=== PATIENT | female | born 1980 | race Caucasian/White ===

== ENCOUNTER 2017-04-09 08:03 | Inpatient (IN) | payer OTHER ==
[2017-04-09] MEDS ORDERED: Dinoprostone* 10 MG VAG.SUPP VAGINAL ONE ×2 (09:00→21:18)
[2017-04-09] MEDS ORDERED: Promethazine INJ(RESTRICTED)* 25 MG/ML 1 ML VIAL IM ONE (21:56)
[2017-04-09] MEDS ORDERED: Nalbuphine* 20 MG/ML 1 ML VIAL IV ONE (21:56)
[2017-04-10] MEDS ORDERED: Oxytocin in LR* 20 UNITS/1,000 ML BAG IVPB SCH (09:00)
[2017-04-10 09:46] LABS: Hematocrit 31 % (35-47); Hemoglobin 10.3 g/dl (12.0-16.0); Mean Corpuscular HGB Conc 34 g/dl (31-36); Mean Corpuscular Hemoglobin 29 pg (27-31); Mean Corpuscular Volume 87 fL (80-97); Mean Platelet Volume 9 um3 (7.4-10.4); Red Blood Count 3.53 10^6/ul (4.0-5.4); Red Cell Distribution Width 14 % (10.5-15); White Blood Count 13.4 10^3/ul (3.5-10.8)
[2017-04-10] MEDS ORDERED: Phenylephrine INJ* 10 MG/ML 1 ML VIAL (10 MG) ONE (11:06)
[2017-04-10] MEDS ORDERED: Nalbuphine* 20 MG/ML 1 ML VIAL IV ONE (16:09)
[2017-04-10] MEDS ORDERED: Promethazine INJ(RESTRICTED)* 25 MG/ML 1 ML VIAL IV ONE (16:10)
[2017-04-10] MEDS ORDERED: OBEPIDURAL* 250 ML ONE (22:56)
[2017-04-10] MEDS ORDERED: Famotidine TAB* 20 MG PO PRN (23:25)
[2017-04-10] MEDS ORDERED: Lactated Ringers 500 ml BAG* 500 ML IV PRN (23:25)
[2017-04-10] MEDS ORDERED: Phenylephrine IV* 40 MCG/ML 10 ML SYRINGE IV PUSH PRN ×2 (23:25)
[2017-04-10] MEDS ORDERED: OBEPIDURAL* 250 ML EPIDURAL SCH (23:45)
[2017-04-11] MEDS ORDERED: oxyCODONE/Acetamin 5/325 MG* TAB PO PRN (08:41)
[2017-04-11] MEDS ORDERED: Acetaminophen TAB* 325 MG PO PRN (08:41)
[2017-04-11] MEDS ORDERED: Witch Hazel PAD* JAR TOPICAL PRN (08:41)
[2017-04-11] MEDS ORDERED: Dibucaine 1% 28.35 GM TUBE PR PRN (08:41)
[2017-04-11] MEDS ORDERED: Glycerin ADULT SUPP PR PRN (08:41)
[2017-04-11] MEDS: Ibuprofen TAB* 600 MG PO PRN ×2 (13:03→20:11)
[2017-04-11] MEDS: Docusate CAP* 100 MG PO SCH ×3 (13:03→20:11)
[2017-04-11] MEDS: Simethicone TAB* 80 MG TAB.CHEW PO SCH (20:31)
[2017-04-12] MEDS: Ibuprofen TAB* 600 MG PO PRN ×4 (02:17→20:36)
[2017-04-12 08:18] LABS: Hematocrit 27 % (35-47); Hemoglobin 8.8 g/dl (12.0-16.0); Mean Corpuscular HGB Conc 33 g/dl (31-36); Mean Corpuscular Hemoglobin 29 pg (27-31); Mean Corpuscular Volume 88 fL (80-97); Mean Platelet Volume 9 um3 (7.4-10.4); Red Blood Count 3.04 10^6/ul (4.0-5.4); Red Cell Distribution Width 14 % (10.5-15)
[2017-04-12] MEDS: Docusate CAP* 100 MG PO SCH ×3 (08:43→20:36)
[2017-04-12] MEDS: Ferrous Gluconate TAB* 324 MG TAB PO SCH ×2 (08:44→20:36)
[2017-04-13] MEDS: Ibuprofen TAB* 600 MG PO PRN (03:36)
[2017-04-13] MEDS: Ferrous Gluconate TAB* 324 MG TAB PO SCH (09:00)
[2017-04-13] MEDS: Docusate CAP* 100 MG PO SCH (09:03)
[2017-04-13 09:21] VITALS: BP 145/71
== END 2017-04-13 10:25 | disposition home or self-care (01) | DRG 560 ==
LOC: MCHOBOUT 08:03 → MCHOB 08:52
PROVIDERS: ADMIT Midwife; ATTEND Midwife
PROC: 3E0P7GC Introduction of Other Therapeutic Substance into Female Reproductive, Via Natural or Artificial Opening (ICD-10-PCS; principal; 2017-04-11)
PROC: 10E0XZZ Delivery of Products of Conception, External Approach (ICD-10-PCS; 2017-04-11)
PROC: 4A1HXCZ Monitoring of Products of Conception, Cardiac Rate, External Approach (ICD-10-PCS; 2017-04-11)
DX: O13.4 Gestational [pregnancy-induced] hypertension without significant proteinuria, complicating childbirth (principal); E66.9 Obesity, unspecified; O87.2 Hemorrhoids in the puerperium; Z3A.39 39 weeks gestation of pregnancy; Z37.0 Single live birth; O71.89 Other specified obstetric trauma; O90.81 Anemia of the puerperium; O99.214 Obesity complicating childbirth; Z68.39 Body mass index [BMI] 39.0-39.9, adult
CPT/HCPCS: 36415; 59200; 81002; 85025; 86850; 86900; 86901; A9270-GY; J2300; J2550

== ENCOUNTER 2019-01-30 18:03 | Emergency (ER) | payer OTHER ==
--- OUTSIDE RECORDS SUMMARY | 2019-01-30 18:08 | XMS REPORT | Continuity of Care Document ---
:1980 Author Organization [facility] Address [address] [place], [place] [id number] Phone Care Team Providers Name Role Phone Bette Good NP Unavailable Unavailable [facility], NURSE OR MA Unavailable Unavailable Allergies, Adverse Reactions, Alerts Substance Reaction Status No Known Allergies Active Medications Medication Instructions Dosage Effective Dates Status Comments (start - stop) Depo-Provera 150 mg/mL IM Q 11-13 weeks - Active intramuscular suspension Problems Condition Effective Dates (start - Clinical Status Comments stop) Encounter for surveillance of injectable contraceptive Enctr srvlnc implantable subdermal contraceptive Encounter for initial prescription of injectable contracep Encounter for test, result negative Enctr for init prescription of implntbl subdermal contracep Encounter for oth general cnsl and advice on contraception Encntr screen for infections w sexl mode of transmiss Encounter for test, result positive Weeks of gestation of not specified Encounter for test, result positive Weeks of gestation of not specified Procedures Procedure Date INJECTION DEPO/CEFTRIAXONE INJECTION OR LAB ONLY VISIT EST OTHER Medical Services Contraceptive DEPO Results Test Name Date and Time Measure Units Reference Range Abnormal Flag Status Comments No information Advance Directives Directive Yes / No Effective Date File Name No information Encounters Encounter Practice Location Reason(s) Diagnoses Date Provider Providers Description For Visit Copied on Encounter [facility] Encounter for [facility] [place] surveillance of 0-201 Bette. 620 Provider: Laura injectable [address], Bette Finger contraceptive [place], [place], Florentino J [facility], [id number], [place]. [address] tel:[phone] [address], [place], [place], [address] [place], [place], [address]. [id number], tel:[phone] [place] [phone] tel:[phone] [facility] [phone] Provider: NURSE [place] [facility]. [facility] Enctr srvlnc Mar-0 Raphaelidis [facility] [place] implantable 6-201 Sarai. 620 W Provider: Southern subdermal [address], Sarai Finger contraceptiveEnc [place], [place] [address] [place] [address]. s, [address] initial tel:[phone], [place], [place], [place] [address] [place], [place], [place], [address]. [id number], contracep tel:[phone] [place] [phone] tel:[phone] [facility] Encounter for Sep-0 Guggino [facility]erring [facility] [place] test, Asha. Provider: [facility] result [address] Asha Finger negativeEnctr [facility], Laisha F, [facility], [address] [place], [address], [address] prescription of [place], [place], [place], implntbl tel:[phone] [place], [place] [address] [place], [address]. [id number], contracep tel:[phone] [place] [phone] tel:[phone] [facility] Encounter for Aug- Raphaelidis Referring [facility] [place] ot general cnsl 8-201 Sarai. 620 W Provider: [facility] and advice on [address], Sarai Finger contraception [place], Raphaelidi [facility], [address]. s, [address] tel:[phone], [place], [place], [address] [place], [place], [address]. [id number], tel:[phone] [place] [phone] tel:[phone] [facility] Encntr screen Oct- Raphaelidis [facility] [place] for infections w 4-201 Sarai. [address] Southern sexl mode of [address], Finger transmissEncount [place], [place], [place], [address] [place] [address]. [address] test, result tel:[phone] St, [place], [place] [address] [place], gestation of [id number], not [place] specified tel:[phone] [facility] Encounter for Renee Spicer. [facility] [place] test, [address] [place] result [address], [place], [place], [address], [place], [address] gestation of [place]. [address], [place], specified [place], [id number], [place] tel:[phone] Family History Family Member Diagnosis Age At Onset Mother Cancer, breast 49 1st degree relative No hx of coronary heart disease (female <65, male <55) 1st degree relative No hx of venous thromboembolism Immunizations Vaccine Date Status Comments No information Payers Payer name Insurance type Covered libertarian ID Authorization(s) Yasmani TAN [facility] CI [id number] Social History Type Description Quantity Date Captured Comments Alcohol Use Details Unknown Caffeine Use Details Unknown Tobacco Use Status Unknown Smoking Status Former smoker Sex Female Vital Signs Date / Height Weight BMI Pulse Blood Temperature Respiratory Body Head BMI Pulse Inhaled Time: Rate Pressure Rate Surface Circumference percentile Ox Ox Area No information Chief Complaint And Reason For Visit No information Reason For Referral Reason For Referral No information Plan Of Treatment Date Type Action Status No information History Of Present Illness Encounter Date Complaint History Of Present Illness No information Functional Status Date Functional Assessment No information Medications Administered Medication Instructions Dosage Effective Dates (start - stop) Status Comments No information Instructions Date Instruction Additional Information No information Assessments Type Assessment Date assessment Encounter for surveillance of injectable contraceptive Goals Health Concern Goal Type Priority Status Date No information Medical Equipment Description Device [place] Device Identifier Effective Dates (start - stop ) Status No information Mental Status Date Cognitive Assessment No information Health Concerns Observation Date No information Concern Status Date No information
[2019-01-30 18:22] VITALS: BP 136/93
--- NOTE | 2019-01-30 18:54 | UC ---
Ear Complaint HPI - HPI Summary HPI Summary: No specific history of bite, but has had increasing redness and swelling of the right ear pinna over the past 12 hours. Using ibuprofen for pain and using compresses for comfort. No hearing loss, no fever. occasional of her toddler. - History of Current Complaint Chief Complaint: UCEar Stated Complaint: EAR RED AND SWOLLEN Time Seen by Provider: 01/30/19 18:45 Hx Obtained From: Patient Hx Last Menstrual Period: 10/04/18 ?: No Onset/Duration: Gradual Onset, Lasting Hours - 12 Pain Intensity: 5 Aggravating Factors: Other - touch Alleviating Factors: OTC Meds Associated Signs/Symptoms: Positive: Discharge - some scant drainage from several areas of the pinna. - Allergies/Home Medications Allergies/Adverse Reactions: Allergies Allergy/AdvReac Type Severity Reaction Status Date / Time No Known Allergies Allergy Verified 01/30/19 18:22 PMH/Surg Hx/FS Hx/Imm Hx Previously Healthy: Yes - Surgical History Surgical History: Yes Surgery Procedure, Year, and Place: left arm surgery - Family History Known Family History: Positive: Hypertension - mother and father, Diabetes - grandmother - Social History Occupation: Employed Full-time Lives: With Family Alcohol Use: Rare Substance Use Type: None Smoking Status (MU): Former Smoker Type: Cigarettes Amount Used/How Often: 1/2 PPD - Immunization History Most Recent Influenza Vaccination: counseled Most Recent Pneumonia Vaccination: none Review of Systems All Other Systems Reviewed And Are Negative: Yes Constitutional: Positive: Negative Skin: Positive: Other - swelling and erythema of the right ear pinna. Eyes: Positive: Negative ENT: Positive: Ear Ache. Negative: Sore Throat Respiratory: Negative: Shortness Of Breath, Cough Cardiovascular: Negative: Palpitations Gastrointestinal: Positive: Negative Genitourinary: Positive: Negative Neurological: Negative: Headache Is Patient Immunocompromised?: No Physical Exam Triage Information Reviewed: Yes Appearance: Well-Appearing, Pain Distress - moderate Vital Signs: Initial Vital Signs Temp 98.8 F 01/30/19 18:16 Pulse 110 01/30/19 18:16 Resp 12 01/30/19 18:16 BP 136/93 01/30/19 18:16 Pulse Ox 99 01/30/19 18:16 Eyes: Positive: Conjunctiva Clear ENT: Positive: Pharynx normal, Other - pinna of the right ear is red, warm and indurated, with 3 small areas of scant light yellow draiange. No pre- or post auricular adenopathy. Canal is patent and without discharge. Dental Exam: Normal Neck: Positive: Supple, Nontender, No Lymphadenopathy Respiratory: Positive: Lungs clear, Normal breath sounds Cardiovascular: Positive: RRR, No Murmur Psychological Exam: Normal Ear Complaint Course/Dx - Course Course Of Treatment: augmentin for suspected cellulitis, likely infected bite. - Differential Dx/Diagnosis Differential Diagnosis/HQI/PQRI: Cellulitis Provider Diagnosis: Cellulitis of right pinna Discharge - Sign-Out/Discharge Documenting (check all that apply): Patient Departure All imaging exams completed and their final reports reviewed: No Studies - Discharge Plan Condition: Stable Disposition: HOME Prescriptions: Amoxicillin/Clavulanate TAB* [Augmentin TAB 875*] 875 mg PO BID #14 tab Patient Education Materials: Cellulitis (ED) Referrals: Salas Moraes CNM [Primary Care Provider] - Additional Instructions: The cellulitis (infection of the soft tissue) of the ear could be the result of a bite or some other irritant to the skin of the ear. Begin use of augmentin twice daily. You can use benadryl 25 to 50 mg at bedtime , which might help the swelling. You can apply 1% hydrocortisone cream to the ear lstructure three times daily, and continue cld compresses. Continue ibuprofen as needed for pain. - Billing Disposition and Condition Condition: STABLE Disposition: Home
== END 2019-01-30 19:22 | disposition home or self-care (01) ==
LOC: UCEAST 18:03
DX: H60.11 Cellulitis of right external ear (principal); Z87.891 Personal history of nicotine dependence
CPT/HCPCS: 99212; G0463

== ENCOUNTER 2019-02-01 17:15 | Emergency (ER) | payer OTHER ==
[2019-02-01] MEDS ORDERED: Ciprofloxacin 400MG IVPREMIX(* 400 MG/200 ML BAG IVPB ONE (18:08)
[2019-02-01] MEDS ORDERED: Ibuprofen TAB* 600 MG PO ONE (18:21)
[2019-02-01 18:50] LABS: ABS Basophils 0.1 10^3/ul (0-0.2); ABS Eosinophils 0.2 10^3/ul (0-0.6); ABS Lymphocytes 2.8 10^3/ul (1.0-4.8); ABS Monocytes 0.5 10^3/ul (0-0.8); ABS Neutrophils 3.6 10^3/ul (1.5-7.7); Eosinophil % 2.5 %; Hematocrit 39 % (35-47); Hemoglobin 12.9 g/dL (12.0-16.0); Lymphocyte % 39.4 %; Mean Corpuscular HGB Conc 33 g/dL (31-36); Mean Corpuscular Hemoglobin 30 pg (27-31); Mean Corpuscular Volume 88 fL (80-97); Mean Platelet Volume 8.1 fL (7.4-10.4); Nucleated Red Blood Cells % 0.1; Platelet Count 199 10^3/uL (150-450); Red Blood Count 4.37 10^6 /uL (3.70-4.87); Red Cell Distribution Width 13 % (10-15); White Blood Count 7.2 10^3/uL (3.5-10.8)
--- NOTE | 2019-02-01 18:57 | ED ---
Throat Pain/Nasal Congestion - HPI Summary HPI Summary: 39-year-old female presents with complaints of increased pain, redness, and swelling of her right earlobe. Patient was seen at urgent care on 01/30/2019 for same complaint, was diagnosed with cellulitis of the pinna, and started on Augmentin 875 mg twice a day. Patient states she has taken a total of 4 doses of the antibiotic but the year has continued to worsen. States the redness and swelling now involves the entire right earlobe. She does note that sounds are more "muffled" in that ear. Denies fever, chills, or drainage. - History of Current Complaint Chief Complaint: EDEarPain Time Seen by Provider: 02/01/19 17:43 Hx Obtained From: Patient - Allergies/Home Medications Allergies/Adverse Reactions: Allergies Allergy/AdvReac Type Severity Reaction Status Date / Time No Known Allergies Allergy Verified 02/01/19 17:34 PMH/Surg Hx/FS Hx/Imm Hx Previously Healthy: Yes - Denies significant PMH Endocrine/Hematology History: Denies: Hx Diabetes Cardiovascular History: Denies: Hx Hypertension Sensory History: Reports: Hx Contacts or Glasses Opthamlomology History: Reports: Hx Contacts or Glasses - Surgical History Surgical History: Yes Surgery Procedure, Year, and Place: left arm surgery Infectious Disease History: No Infectious Disease History: Denies: Traveled Outside the [place] in Last 30 Days - Family History Known Family History: Positive: Hypertension - mother and father, Diabetes - grandmother - Social History Occupation: Employed Full-time Lives: With Family Alcohol Use: Rare Substance Use Type: Reports: None Smoking Status (MU): Former Smoker Type: Cigarettes Amount Used/How Often: 1/2 PPD Review of Systems Negative: Fever, Chills ENT: Other - See HPI Cardiovascular: Negative Respiratory: Negative Gastrointestinal: Negative Genitourinary: Negative Musculoskeletal: Negative Skin: Other - See HPI Neurological: Negative All Other Systems Reviewed And Are Negative: Yes Physical Exam - Summary Physical Exam Summary: GENERAL APPEARANCE: Well developed, well nourished, alert and cooperative, and appears to be in no acute distress. EYES: Conjunctiva clear. No drainage. EARS: Significant erythema, induration, and edema of the entire ear lobe with 2 areas of ulceration with crusting. No fluctuance noted. External auditory canals and tympanic membranes clear, hearing grossly intact. NOSE: No nasal discharge. THROAT: Pharynx normal. No tonsilar inflammation, swelling, exudate, or lesions. Uvula midline. NECK: Neck supple, non-tender. Right preauricular lymphadenopathy CARDIAC: Normal S1 and S2. No S3, S4 or murmurs. Rhythm is regular. There is no peripheral edema, cyanosis or pallor. Extremities are warm and well perfused. Capillary refill is less than 2 seconds. Peripheral pulses intact. LUNGS: Clear to auscultation without rales, rhonchi, wheezing or diminished breath sounds. ABDOMEN: Positive bowel sounds. Soft, nondistended, nontender. No guarding or rebound. No masses or hepatosplenomegally. MUSKULOSKELETAL: ROM intact to all extremities. No joint erythema or tenderness. Normal muscular development. Normal gait. SKIN: Skin normal color, texture and turgor. Triage Information Reviewed: Yes Vital Signs On Initial Exam: Initial Vitals Temp Pulse Resp BP Pulse Ox 99.3 F 93 16 142/83 98 02/01/19 17:29 02/01/19 17:29 02/01/19 17:29 02/01/19 17:29 02/01/19 17:29 Vital Signs Reviewed: Yes Diagnostics - Vital Signs Vital Signs Temp Pulse Resp BP Pulse Ox 02/01/19 17:29 99.3 F 93 16 142/83 98 - Laboratory Lab Results: Lab Results 02/01/19 Range/Units 18:38 WBC 7.2 (3.5-10.8) 10^3/uL RBC 4.37 (3.70-4.87) 10^6 /uL Hgb 12.9 (12.0-16.0) g/dL Hct 39 (35-47) % MCV 88 (80-97) fL MCH 30 (27-31) pg MCHC 33 (31-36) g/dL RDW 13 (10-15) % Plt Count 199 (150-450) 10^3/uL MPV 8.1 (7.4-10.4) fL Neut % (Auto) 49.7 % Lymph % (Auto) 39.4 % [place] % (Auto) 7.1 % Eos % (Auto) 2.5 % Baso % (Auto) 1.3 % Absolute Neuts (auto) 3.6 (1.5-7.7) 10^3/ul Absolute Lymphs (auto) 2.8 (1.0-4.8) 10^3/ul Absolute Monos (auto) 0.5 (0-0.8) 10^3/ul Absolute Eos (auto) 0.2 (0-0.6) 10^3/ul Absolute Basos (auto) 0.1 (0-0.2) 10^3/ul Absolute Nucleated RBC 0.0 10^3/ul Nucleated RBC % 0.1 Result Diagrams: 02/01/19 18:38 Lab Statement: Any lab studies that have been ordered have been reviewed, and results considered in the medical decision making process. EENT Course/Dx - Course Course Of Treatment: 39-year-old female presents with complaints of increased pain, redness, and swelling of her right earlobe. Patient was seen at urgent care on 01/30/2019 for same complaint, was diagnosed with cellulitis of the pinna , and started on Augmentin 875 mg twice a day. Patient states she has taken a total of 4 doses of the antibiotic but the year has continued to worsen. States the redness and swelling now involves the entire right earlobe. She does note that sounds are more "muffled" in that ear. Denies fever, chills, or drainage. Afebrile. Hypertensive otherwise vital signs stable. Patient had significant erythema, induration, and edema of the entire ear lobe with 2 areas of ulcer with custing. No fluctuance noted. External auditory canals and tympanic membranes clear. Remainder of exam was unremarkable. A CBC was obtained and was normal. Blood culture is pending. Patient was given ibuprofen 600 mg PO for pain and received ciprofloxacin 400 mg IV to provide coverage for pseudomonas. Discussed case with who recommends continuing the patient's Augmentin and adding ciprofloxacin 500 mg twice a day. He will see her in the office in 2 days for reevaluation. Anticipatory guidance, warning symptoms, and the plan of care was discussed at length with the patient. She verbalizes understanding and agrees with plan of care. - Differential Diagnoses Differential Diagnoses: Cellulitis, Otitis Externa - Diagnoses Provider Diagnoses: Acute perichondritis of right external ear - Provider Notifications Discussed Care Of Patient With: Guille Méndez - Requests that she continue on Augmentin 875 mg BID and add ciprofloxacin 500 mg BID. Time Discussed With Above Provider: 19:29 Instructed by Provider To: Have Pt Call For Appt. - Sunday. Discharge - Sign-Out/Discharge Documenting (check all that apply): Patient Departure Patient Received Moderate/Deep Sedation with Procedure: No - Discharge Plan Condition: Stable Disposition: HOME Prescriptions: Ciprofloxacin HCl 500 mg PO BID 5 Days #10 tablet Patient Education Materials: Cellulitis (ED) Referrals: Salas Moraes CNM [Primary Care Provider] - Guille Méndez MD [Medical Doctor] - 2 Days Additional Instructions: You have an infection of the earlobe called perichondritis. The complete blood count that was performed in the emergency room was normal. A blood culture is still pending. You were given a dose of an IV antibiotic called ciprofloxacin in the emergency room. We will continue to have a take ciprofloxacin 500 mg 1 tablet twice a day for 5 days. Continue the Augmentin as previously directed. Take ibuprofen 600 mg every 6 hours as needed for pain. Follow-up with Dr. Méndez, Ear, Nose, and Throat, on Sunday. Call the office first thing Sunday for an appointment. Return to the emergency if you develop a fever greater than 100.5 F, have increased redness and swelling, pain that is not managed with ibuprofen, or any worsening of symptoms. - Billing Disposition and Condition Condition: STABLE Disposition: Home Images - Images Ear: 1 - Ulceration with crusting 2 - Ulceration with crusting
[2019-02-01 20:12] VITALS: BP 138/74
== END 2019-02-01 20:10 | disposition home or self-care (01) ==
LOC: ED 17:15
DX: H61.011 Acute perichondritis of right external ear (principal); Z87.891 Personal history of nicotine dependence
CPT/HCPCS: 36415; 85025; 87040; 96365; 99283; A9270-GY; J0744